=== PATIENT | male | born 1990 | race Two or more races ===

== ENCOUNTER 2018-06-18 07:56 | Emergency (ER) | payer OTHER ==
[~2018-06-18] VITALS: Ht 180.3 cm; Wt 84.5 kg
[2018-06-18 11:32] VITALS: BP 131/80
[2018-06-18] MEDS ORDERED: LIDOCAINE 1% HCL (LOCAL ANESTH.) INJ 20ML MDV IJ ONE (13:30)
[2018-06-18] MEDS ORDERED: cefTRIAXone SOD 1,000 MG VL IM ONE (14:00)
== END 2018-06-18 14:47 | disposition home or self-care (01) ==
LOC: ER 07:56
DX: L02.414 Cutaneous abscess of left upper limb (principal)
CPT/HCPCS: 10060; 96372; 99283; C1887; J0696; J2001